=== PATIENT | female | born 1995 | race Caucasian/White ===

== ENCOUNTER 2019-04-08 01:43 | Inpatient (IN) | payer MEDICAID ==
[2019-04-08] MEDS ORDERED: LACTATED RINGER'S 1,000 ML IV (03:18)
[2019-04-08] MEDS ORDERED: CARBOPROST 250 MCG INJ IM ×2 (03:30→19:30)
[2019-04-08] MEDS ORDERED: OXYTOCIN 30 UNITS/LR 500 ML IV ×3 (03:30→19:30)
[2019-04-08] MEDS ORDERED: BUTORPHANOL 2 MG INJ IV ×2 (03:30)
[2019-04-08] MEDS ORDERED: LIDOCAINE 1% (MPF) 30 ML INJ INJ (03:30)
[2019-04-08] MEDS ORDERED: MISOPROSTOL 200 MCG TAB PR ×2 (03:30→19:30)
[2019-04-08] MEDS ORDERED: METHYLERGONOVINE 0.2 MG INJ IM ×2 (03:30→19:30)
[2019-04-08] MEDS: LACTATED RINGER'S 1,000 ML IV ×2 (03:46→11:31)
[2019-04-08] MEDS: AMPICILLIN 2 GM/NS (PMX) 100 ML IV (04:24)
[2019-04-08] MEDS: OXYTOCIN 30 UNITS/LR 500 ML IV ×3 (04:43→21:35)
[2019-04-08] MEDS ORDERED: AMPICILLIN 1 GM/NS (PMX) 50 ML IV (07:30)
[2019-04-08] MEDS: AMPICILLIN 1 GM/NS (PMX) 50 ML IV (15:44)
[2019-04-08] MEDS: IBUPROFEN 600 MG TAB PO ×2 (18:16→23:41)
[2019-04-08] MEDS ORDERED: WITCH HAZEL/GLYCERIN PAD PR (19:30)
[2019-04-08] MEDS ORDERED: ACETAMINOPHEN 325 MG TAB PO (19:30)
[2019-04-08] MEDS ORDERED: ZOLPIDEM 5 MG TAB PO (19:30)
[2019-04-08] MEDS ORDERED: MAGNESIUM HYDROXIDE 30ML CUP PO (19:30)
[2019-04-08] MEDS ORDERED: ONDANSETRON 4 MG INJ IV (19:30)
[2019-04-08] MEDS ORDERED: DIPHENHYDRAMINE 25 MG CAP PO (19:30)
[2019-04-08] MEDS ORDERED: SENNA/DOCUSATE NA (8.6MG/50MG) TAB PO (19:30)
[2019-04-08] MEDS ORDERED: NACL 0.9% 3 ML SYG IV (19:30)
[2019-04-08] MEDS ORDERED: HYDROCODONE/APAP (5/325) TAB PO (19:30)
[2019-04-08] MEDS: LANOLIN HPA 1 PKT TOP (21:03)
[2019-04-09] MEDS: IBUPROFEN 600 MG TAB PO ×3 (05:28→18:21)
[2019-04-09] MEDS: BENZOCAINE 20% 56 ML SPRAY TOP (11:49)
[2019-04-09] MEDS: LANOLIN HPA 1 PKT TOP (18:20)
[2019-04-10] MEDS: IBUPROFEN 600 MG TAB PO ×2 (00:35→06:01)
[2019-04-10] MEDS: MEASLES,MUMPS,RUBELLA VACCINE INJ SC* (09:00)
[2019-04-10] MEDS: DIPHTH/TET/ACEL PERTUSS (ADULT) 0.5 ML VIAL IM* (09:00)
== END 2019-04-10 11:15 | disposition home or self-care (01) | DRG 807 ==
LOC: OBT 01:43 → L-D 01:44 → OBT 03:18 → L-D 03:18 → PP1 18:25
PROC: 10E0XZZ Delivery of Products of Conception, External Approach (ICD-10-PCS; principal; 2019-04-08)
DX: O80 Encounter for full-term uncomplicated delivery (principal); Z37.0 Single live birth; Z3A.38 38 weeks gestation of pregnancy
CPT/HCPCS: 76818; 84112; 85025; 85610; 85730; 86592; 86703; 86850; 86900; 86901; 87340; 99464